=== PATIENT | female | born 2000 | race Caucasian/White ===

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

== ENCOUNTER 2021-05-10 08:29 | Outpatient (CLI) | payer BC | END 2021-05-10 08:30 | disposition home or self-care (01) | LOC: BICULT 08:29 | PROVIDERS: ATTEND Physician Assistant Medical | DX: R10.13 Epigastric pain (principal); R11.0 Nausea; R19.5 Other fecal abnormalities; R63.4 Abnormal weight loss | CPT/HCPCS: 93975 ==